=== PATIENT | female | born 1965 | race Caucasian/White ===

== ENCOUNTER 2016-07-27 14:58 | Inpatient (IN) | payer BC ==
--- NOTE | ~2016-07-27 | DS ---
Discharge Summary [address] [facility] [place] [place]. [address] NAME: MIMA ROBERT : 61 STATUS : DIS IN PAT#: [id number] AGE: 50 ADM/REG DATE : 07/27/16 MR#: [id number] REPORT SERV DATE: 07/31/16 DICTATED BY: AKI SANTANA DATE: 07/31/16 REPORT STATUS : Draft TRANSCRIBED BY: MODL DATE: 07/31/16 ADMISSION DATE: 07/27/2016 DISCHARGE DATE: 07/31/2016 DISCHARGE DIAGNOSES: 1. Left foot fourth toe diabetic ulcer and gangrene. Status post amputation. 2. Type 2 diabetes mellitus with neuropathy. 3. History of systolic congestive heart failure with an estimated ejection fraction of 30% and an AICD. 4. Coronary artery disease. 5. Hypothyroidism. CONSULTANTS DURING THIS HOSPITALIZATION: Dr. Miko Pandey of Podiatry, Dr. Robb Land of Infectious Disease. INVASIVE PROCEDURES DONE DURING THIS HOSPITALIZATION: Amputation of the left fourth toe due to gangrene and diabetic ulcer. BRIEF HISTORY OF PRESENT ILLNESS: The patient is a 50-year-old female, admitted directly from Dr. Miko Pandey's office, who is followed by Dr. Mackenzie Gonzales for her diabetes, for a gangrene of the left foot fourth toe. For detailed history and physical exam, please see note dictated by Dr. Carlos Lantigua on 07/27/2016. HOSPITAL COURSE: After being admitted to the hospital, this patient was started on broad- spectrum antibiotics. Cultures were obtained. Infectious Disease consultation was done, and Dr. Miko Pandey from Podiatry saw the patient in consultation. The patient underwent an amputation of her fourth toe. Arterial Dopplers of the lower extremities were done which showed no evidence of medium to large vessel stenosis or occlusion to the lower extremities. Small little diabetic changes may be present. She had x-ray of the left foot after amputation, interval amputation of the fourth toe without evidence of complication. X-ray of the left foot prior showed subluxation of the fourth distal interphalangeal joint. No complete dislocation and/or fracture identified. Overlying soft-tissue defect suspected. No definitive osseous erosions to strongly suggest osteo. This patient continued to improve. Once her toe was amputated, Dr. Land recommended that we finish the course of antibiotics. She has finished the course of Zyvox and cefepime. Podiatry and Infectious Disease both have signed off. At this time, this patient remained stable and is being discharged in stable condition. DISCHARGE DISPOSITION: Home. DISCHARGE ACTIVITY: As tolerated under the direction of Podiatry. DISCHARGE DIET: 1800-calorie [employer] diet. DISCHARGE MEDICATIONS: Vitamin C 1000 mg twice daily, aspirin 81 mg once daily, Trilipix 135 mg once daily, Januvia 100 mg p.o. daily, Coreg 3.125 mg twice daily, vitamin B12 of 1000 Discharge Summary [address] [address] NAME: MIMA ROBERT : 61 STATUS : DIS IN PAT#: [id number] AGE: 50 ADM/REG DATE : 07/27/16 MR#: [id number] REPORT SERV DATE: 07/31/16 DICTATED BY: AKI SANTANA DATE: 07/31/16 REPORT STATUS : Draft TRANSCRIBED BY: KELTON DATE: 07/31/16 mcg twice daily, vitamin D3 of 4000 units p.o. twice daily, estradiol 2 mg p.o. at bedtime, iron 300 mg p.o. twice daily, glipizide 5 mg p.o. before breakfast, multivitamins one tablet daily, Altace 2.5 mg once at bedtime, Aldactone 100 mg p.o. daily, Warriormine Thyroid 60 mg once daily, vitamin E 400 mg twice daily, metformin 1000 mg twice daily, Invokana 100 mg once daily, Crestor 10 mg once at bedtime, biotin 100 mcg twice daily, vitamins one tablet daily, Systane eye drops, and nitroglycerin 0.4 sublingual p.r.n. for chest pain. DISCHARGE FOLLOWUP: With Dr. Jung Casiano as scheduled previously. With Dr. Miko Pandey as scheduled by him. More than 30 minutes spent planning this patient's discharge, reconciling medications, discussing hospital care, and followup with the patient and documenting this discharge. EULOGIO/KELTON Aki Santana M.D. / [id number] CC: Chen Menendez M.D. Aaron Solomon, D.P.M.
--- NOTE | ~2016-07-27 | OP ---
Record Of Operation [facility] [address] [place]. [address] NAME: MIMA ROBERT : 61 STATUS : ADM IN PAT#: [id number] AGE: 50 ADM/REG DATE : 07/27/16 MR#: [id number] REPORT SERV DATE: 07/28/16 DICTATED BY: MIKO PANDEY DATE: 07/28/16 REPORT STATUS : Draft TRANSCRIBED BY: MODL DATE: 07/28/16 DATE OF PROCEDURE: 07/28/2016 SURGERY PERFORMED: [facility]. SURGEON: Miko Pandey D.P.M. PREOPERATIVE DIAGNOSIS: Gangrene, left 4th toe. POSTOPERATIVE DIAGNOSIS: Gangrene, left 4th toe. PROCEDURE: Amputation of left 4th toe. PATHOLOGY: Bone and soft tissue sent for histopathologic analysis. ANESTHESIA: Local with monitored anesthesia care with IV sedation. HEMOSTASIS: None. ESTIMATED BLOOD LOSS: 5 mL. MATERIALS: 2-0 Ethilon. COMPLICATIONS: None. INDICATIONS: This is a 50-year-old female with a longstanding history of complications associated with diabetic neuropathy including a previous left 5th toe amputation and chronic ulceration on the right foot, for which she is receiving wound care. The patient recently had a left 5th toe amputation with good result. Unfortunately, recently, the patient noted that her dressing became wet, and in an attempt to dry it, took a hair steam drier tender to her foot. Unfortunately, with her severe neuropathy, did not realize that she caused a second-degree burn to her left 4th toe. Clinical examination was consistent with blistering consistent with a second-degree burn. There was a small lesion on the left 3rd toe as well. Unfortunately, this was unresponsive to wound care and gradually progressed to gangrene of the left 4th toe. Fortunately, the small lesion on the left 3rd toe appears to be stable and resolving. Based upon the clinical appearance of gangrene, it is recommended that the patient be admitted to the hospital for IV antibiotic therapy and surgical debridement. Discussed with the patient that she needs a left 4th toe amputation. Discussed the alternatives, benefits, and possible complications of surgical procedure. No problems or guarantees were given. The patient is scheduled for surgery. BRIEF SUMMARY OF OPERATION: The patient was brought to the operating room and transferred to the operative table in the supine position. Appropriate monitoring including EKG, blood pressure, pulse oximeter were attached to the patient and found to be in good working order. IV access was established on the floor and the patient is receiving IV antibiotic therapy. The patient was identified by the surgeon. Sedation was administered and the patient Record Of Operation [facility] [address] [facility] [place]. [address] NAME: MIMA ROBERT : 61 STATUS : ADM IN PAT#: [id number] AGE: 50 ADM/REG DATE : 07/27/16 MR#: [id number] REPORT SERV DATE: 07/28/16 DICTATED BY: MIKO PANDEY DATE: 07/28/16 REPORT STATUS : Draft TRANSCRIBED BY: MODL DATE: 07/28/16 received an ankle block per Anesthesia. The patient's left foot was prepped and draped in the usual sterile manner. Attention was directed towards the left 4th toe. A modified racquet incision in a full- thickness fashion was made. The toe was then disarticulated at the metatarsophalangeal joint and amputated. The resected tissue was sent for histopathologic analysis. Good bleeding was noted from the tissues and bleeders were identified and ligated via electrocautery. Residual necrotic tissue was removed via sharp excisional debridement to the level of the subcutaneous and fascial layer. Excess capsular tissue was also removed. Operative site was copiously irrigated with normal saline. Skin edges were remodeled for closure. Skin was reapproximated with 2-0 Ethilon suture in an interrupted horizontal mattress fashion. Sterile postop dressing including Xeroform, dry sterile gauze was applied to the left foot. A 4-inch Ab wrap was applied over the postoperative dressings for adequate postoperative compression. Good cap refill to the residual toes on the left foot was noted under three seconds. The patient tolerated the procedure and anesthesia well. The patient left the operating room and returned to recovery room with vital signs stable and vital signs intact. The patient to be readmitted to [facility] for continued postoperative care. We will plan to discharge patient home when medically and surgically stable. It was reiterated to the patient that due to her neuropathy she is neither to place her foot in extreme heat or cold as she risks severe injury to her foot. We will follow up the patient on the floor. /KELTON Miko Pandey D.P.M. / [id number] CC: Chen Menendez M.D.
--- NOTE | ~2016-07-27 | HP ---
History And Physical [id number] [place]. [address] NAME: MIMA ROBERT : 61 STATUS : ADM IN [facility]#: [id number] AGE: 50 ADM/REG DATE : 07/27/16 MR#: [id number] REPORT SERV DATE: 07/28/16 DICTATED BY: DAVINA FIGUEROA DATE: 07/27/16 REPORT STATUS : Draft TRANSCRIBED BY: MODShamir DATE: 07/27/16 DATE OF ADMISSION: 07/27/2016 CONSULTING PHYSICIAN: Dr. Miko Pandey for podiatry and food service sales representatives outpatient, [facility]. HISTORY OF PRESENT ILLNESS: This 50-year-old female, referred for direct admission for left foot diabetic ulcer. The patient has a history of diabetes with neuropathy, CAD, CHF, and was recently discharged in 05/2016 for an amputation of the left fifth toe for osteomyelitis. The patient was doing well until three weeks ago when she started having a blister on fourth toe of the left foot. She follows up with Dr. Pandey and they were watching that until today when and he noted some gangrene and he then sent the patient over here after dressing both feet and the plan is for her to have surgery. The patient denied any fever, chills, or sweats. No cough or shortness of breath. No palpitations, near syncopal, or syncopal episode. No nausea and vomiting. No urinary or bowel changes. No localized weakness and the rest of the 14-point review of system is negative except as above. PAST MEDICAL HISTORY: Includes the above. Amputation of her right toe in 2014, VT seven years ago, systolic heart failure, AICD placed in 12/2014, hysterectomy, and tonsillectomy. ALLERGIES: SHE HAS NO KNOWN DRUG ALLERGIES. MEDICATIONS: Include ascorbic acid, aspirin, biotin, Invokana, Coreg, vitamin D, cyanocobalamin, estradiol, TriLipix, iron, Glucotrol, metformin, multivitamin, nitroglycerin, vitamin, ramipril, Crestor, Januvia, spironolactone, thyroid, vitamin E. FAMILY HISTORY: Mom has diabetes, colon cancer, MDS. Dad had colon cancer and diabetes. 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 Denies alcohol or recreational drug use. Quit smoking 7 years ago. PHYSICAL EXAMINATION: GENERAL: The patient is alert and oriented x3 not in cardiopulmonary distress. VITAL SIGNS: Include a saturation 97% on room air, blood pressure of 123/70, temperature of 98.4, pulse rate of 92, respiration of 18. NECK: She has supple neck. No JVD or carotid bruits. No lymphadenopathy. HEENT: [employer] conjunctivae. Anicteric sclerae. No pharyngeal erythema. LUNGS: Clear lungs. No rales, no wheezes. CARDIOVASCULAR: Regular rate and rhythm. No murmurs appreciated. Positive bowel sounds. Soft, nontender, no masses. Fair pulses. No edema. Examination of the foot is tempered because she has a new dressing placed by Dr. Pandey in both right and left foot. NEURO: Nonlocalizing. LABORATORIES: All pending. History And Physical [address] [address] NAME: MIMA ROBERT : 61 STATUS : ADM IN [facility]#: [id number] AGE: 50 ADM/REG DATE : 07/27/16 MR#: [id number] REPORT SERV DATE: 07/28/16 DICTATED BY: DAVINA FIGUEROA DATE: 07/27/16 REPORT STATUS : Draft TRANSCRIBED BY: KELTON DATE: 07/27/16 ASSESSMENT: 1. Left fourth toe diabetic foot ulcer, possible gangrene rule out osteomyelitis. 2. Diabetes with neuropathy. 3. History of congestive heart failure systolic with AICD. 4. Coronary artery disease with history of myocardial infarction. PLAN: The patient already seen the podiatry and has been scheduled for surgery. We will check the blood work, x-rays, ultrasound of the blood flow to the foot, also requested for an ID consult. I would prefer no antibiotics before surgery to get a better culture and then start the antibiotics afterwards. We will continue her present medications but hold of oral diabetic medications. Place her on subcu insulin protocol. She said that her sugar has been only reviewed with 100 to 150 at home and the most recent hemoglobin A1c 2 months ago, it shows that it is at 7.11. This has been the patient will be seen by Anesthesia and have the surgery tomorrow. This has been explained to the patient. She agreed with the plan. PAMELA/KELTON Davina Figueroa M.D. / [id number] CC: Chen Menendez M.D.
[~2016-07-27 14:58] MED LIST: ALTA2.5 PO; ARMOUR THYRO60 MG PO; ASAB PO; BIOTIN10 MG PO; COREG3 PO; CRESTOR10 PO; CYANO1000T PO; DURICEF PO; ESTRADIOL2 MG PO; FESO4 PO; FLEXERIL5 MG PO; GLUCOPHAGE1000 MG PO; GLUCOTROL5 PO; GLUCPH8 PO; HALF81 PO; HARD NAILS PO; INVOKANA100 MG PO; LOFIBRA54 MG PO; MULTI-VIT HP PO; MULTIVIT/MIN PO; NATALVIT1 TAB PO; PRENAVITE PO; SILVADENE1 % TOP; SPIR100 PO; SPIRO50 PO; SYSTANE OPH; TRILIPIX135 MG PO; VITAMIN B PO; VITAMIN B-121000 MC1 SL; VITAMIN D31000 UNIT PO; VITC500 PO; VITE PO; [UNRECOGNIZED DRUG - OTHER]
[2016-07-27 16:26] LABS: BASOPHILS 0.3 %; BASOPHILS ABSOLUTE 0.03 10/3/uL (0.0-0.16); EOSINOPHILS 1.6 %; EOSINOPHILS ABSOLUTE 0.16 10/3/uL (0.0-0.53); HEMATOCRIT 35.5 % (36.0-48.0); HEMOGLOBIN 11.7 g/dL (12.0-16.0); IMMATURE GRANULOCYTES 0.3 %; IMMATURE GRANULOCYTES ABSOLUTE 0.03 10/3/uL (0.0-0.11); LYMPHOCYTES ABSOLUTE 2.73 10/3/uL (0.67-4.30); MEAN CORPUSCULAR HEMOGLOB 29.3 pg (26.0-34.0); MONOCYTES 5.7 %; MONOCYTES ABSOLUTE 0.56 10/3/uL (0.21-1.20); NEUTROPHILS 64.1 %; NEUTROPHILS ABSOLUTE 6.25 10/3/uL (2.02-8.40); RBC DISTRIBUTION WIDTH 14.9 % (12.0-16.0)
[2016-07-27 16:27] LABS: MANUAL DIFF NO %; MEAN CORPUSCULAR VOLUME 88.8 fL (80-100); PLATELET COUNT 283 10/3/uL (150-400); WHITE BLOOD CELLS 9.8 10/3/uL (4.5-10.5)
[2016-07-27 16:31] LABS: INTERNATIONAL NORMAL RATI 1.1 UNITS (-); PROTIME (NOT ORD) 14.1 SEC (12.0-14.5)
[2016-07-27 16:44] LABS: CHLORIDE, SERUM 102 MMOL/L (96-112); CO2 (CARBON DIOXIDE) 23 MMOL/L (24-34); CREATININE 1.05 MG/DL (0.55-1.02); GFR AFRICAN AMERICAN 71 ML/MIN (>=60); GFR NON AFRICAN AMERICAN 61 ML/MIN (>=60); SGOT(AST) 14 U/L (5-40); SGPT(ALT) 22 U/L (5-65); SODIUM, SERUM 135 MMOL/L (135-148); TOTAL BILIRUBIN 0.2 MG/DL (0-1.2); TOTAL PROTEIN 8.3 G/DL (6.0-8.5)
[2016-07-27 16:45] LABS: A/G RATIO 0.7 (0.7-1.9); ALBUMIN 3.5 G/DL (3.5-5.0); ALKALINE PHOSPHATASE 59 U/L (45-117); BUN (BLOOD UREA NITROGEN) 26 MG/DL (6-23); CALCIUM, SERUM 10.7 MG/DL (8.5-10.4); GLOBULIN 4.8 G/DL (2.5-4.1); GLUCOSE, SERUM 178 MG/DL (60-99)
[2016-07-27] MEDS ORDERED: JANUVIA100 MG PO (16:59)
[2016-07-27] MEDS ORDERED: [UNRECOGNIZED DRUG - SUPPLY] OPH (16:59)
[2016-07-27] MEDS ORDERED: NTG150 SL (17:00)
[2016-07-27 17:27] LABS: SED RATE 73 MM/HR (0-20)
[2016-07-28 04:58] LABS: ASCORBIC ACID (UR NOT ORDER) 40 (NEG); BILIRUBIN, URINE NEGATIVE (NEG); KETONE, URINE NEGATIVE (NEG); LEUKOCYTE ESTERASE(NOT OR NEG (NEG); WBC (NOT ORDERED) (RFLEX) < 1 (0-5)
[2016-07-29 06:33] LABS: BASOPHILS 0.3 %; BASOPHILS ABSOLUTE 0.02 10/3/uL (0.0-0.16); EOSINOPHILS 1.9 %; EOSINOPHILS ABSOLUTE 0.14 10/3/uL (0.0-0.53); HEMATOCRIT 34.6 % (36.0-48.0); HEMOGLOBIN 11.2 g/dL (12.0-16.0); IMMATURE GRANULOCYTES 0.1 %; IMMATURE GRANULOCYTES ABSOLUTE 0.01 10/3/uL (0.0-0.11); LYMPHOCYTES 25.9 %; MEAN CORPUS HGB CONC 32.4 g/dL (32.0-36.0); MEAN CORPUSCULAR VOLUME 89.6 fL (80-100); MEAN PLATELET VOLUME 9.3 fL (9.2-13.0); MONOCYTES 6.9 %; MONOCYTES ABSOLUTE 0.51 10/3/uL (0.21-1.20); NEUTROPHILS 64.9 %; NEUTROPHILS ABSOLUTE 4.76 10/3/uL (2.02-8.40); PLATELET COUNT 229 10/3/uL (150-400); RBC DISTRIBUTION WIDTH 14.7 % (12.0-16.0); RED CELL COUNT 3.86 10/6/uL (4.0-5.6); WHITE BLOOD CELLS 7.3 10/3/uL (4.5-10.5)
[2016-07-29 06:34] LABS: MANUAL DIFF NO %
[2016-07-29 06:53] LABS: BUN (BLOOD UREA NITROGEN) 18 MG/DL (6-23); CALCIUM, SERUM 9.2 MG/DL (8.5-10.4); CHLORIDE, SERUM 104 MMOL/L (96-112); CO2 (CARBON DIOXIDE) 24 MMOL/L (24-34); CREATININE 0.86 MG/DL (0.55-1.02); GFR AFRICAN AMERICAN 90 ML/MIN (>=60); GFR NON AFRICAN AMERICAN 78 ML/MIN (>=60); GLUCOSE, SERUM 152 MG/DL (60-99); POTASSIUM, SERUM 4.4 MMOL/L (3.5-5.3); SODIUM, SERUM 136 MMOL/L (135-148)
[2016-07-29 07:18] LABS: SED RATE 64 MM/HR (0-20)
[2016-07-31 06:04] LABS: BASOPHILS 0.1 %; BASOPHILS ABSOLUTE 0.01 10/3/uL (0.0-0.16); EOSINOPHILS 2.5 %; EOSINOPHILS ABSOLUTE 0.19 10/3/uL (0.0-0.53); HEMATOCRIT 37.7 % (36.0-48.0); HEMOGLOBIN 12.4 g/dL (12.0-16.0); IMMATURE GRANULOCYTES 0.3 %; IMMATURE GRANULOCYTES ABSOLUTE 0.02 10/3/uL (0.0-0.11); LYMPHOCYTES 27.4 %; LYMPHOCYTES ABSOLUTE 2.06 10/3/uL (0.67-4.30); MEAN CORPUS HGB CONC 32.9 g/dL (32.0-36.0); MEAN CORPUSCULAR HEMOGLOB 29.3 pg (26.0-34.0); MEAN CORPUSCULAR VOLUME 89.1 fL (80-100); MEAN PLATELET VOLUME 9.8 fL (9.2-13.0); MONOCYTES 8.1 %; MONOCYTES ABSOLUTE 0.61 10/3/uL (0.21-1.20); NEUTROPHILS 61.6 %; NEUTROPHILS ABSOLUTE 4.63 10/3/uL (2.02-8.40); PLATELET COUNT 252 10/3/uL (150-400); RED CELL COUNT 4.23 10/6/uL (4.0-5.6); WHITE BLOOD CELLS 7.5 10/3/uL (4.5-10.5)
[2016-07-31 06:05] LABS: MANUAL DIFF NO %
[2016-07-31 06:17] LABS: ALBUMIN 3.3 G/DL (3.5-5.0); BUN (BLOOD UREA NITROGEN) 23 MG/DL (6-23); CALCIUM, SERUM 9.6 MG/DL (8.5-10.4); CHLORIDE, SERUM 103 MMOL/L (96-112); CO2 (CARBON DIOXIDE) 23 MMOL/L (24-34); CREATININE 1.07 MG/DL (0.55-1.02); GFR AFRICAN AMERICAN 69 ML/MIN (>=60); GFR NON AFRICAN AMERICAN 60 ML/MIN (>=60); GLUCOSE, SERUM 124 MG/DL (60-99); POTASSIUM, SERUM 4.6 MMOL/L (3.5-5.3); SODIUM, SERUM 135 MMOL/L (135-148)
== END 2016-07-31 10:50 | disposition home or self-care (01) | DRG 256 ==
LOC: 2SO 14:58
PROVIDERS: Internal Medicine; Podiatrist
PROC: 0Y6W0Z3 Detachment at Left 4th Toe, Low, Open Approach (ICD-10-PCS; principal; 2016-07-28 10:30)
DX: E11.52 Type 2 diabetes mellitus with diabetic peripheral angiopathy with gangrene (principal); M86.172 Other acute osteomyelitis, left ankle and foot; I50.22 Chronic systolic (congestive) heart failure; E11.42 Type 2 diabetes mellitus with diabetic polyneuropathy; E11.621 Type 2 diabetes mellitus with foot ulcer; L97.524 Non-pressure chronic ulcer of other part of left foot with necrosis of bone; E11.69 Type 2 diabetes mellitus with other specified complication; I25.10 Atherosclerotic heart disease of native coronary artery without angina pectoris; E03.9 Hypothyroidism, unspecified; E78.00 Pure hypercholesterolemia, unspecified; I25.2 Old myocardial infarction; Z79.4 Long term (current) use of insulin; Z95.810 Presence of automatic (implantable) cardiac defibrillator; Z87.891 Personal history of nicotine dependence
CPT/HCPCS: 73630-LT; 73630-RT; 80048; 80053; 80069; 81001; 82962; 83036; 85025; 85610; 85652; 87040; 88305; 88311; 93005; 93923; A9270-GY; J0690; J0692; J2250; J2795; J3010; J3370